=== PATIENT | female | born 1985 | race Caucasian/White ===

== ENCOUNTER → 2017-03-06 | Outpatient (CLI) | payer MEDICARE ==
[~2017-03-06] MED LIST: IBUPROFEN400 MG PO; IBUPROFEN800 MG PO; SUBOXONE 8 MG-1 EACH SL; SUBUTEX 8 MG TAB8 MG PO; SYNTHROID50 MCG PO; TOPICAINE30 GM TD; TYLENOL 500 MG500 MG PO
[2017-03-06 08:58] LABS: HEMOGLOBIN 12.8 gm/dl (12.3-15.3); RED BLOOD COUNT 4.55 M/UL (4.00-5.10); WHITE BLOOD COUNT 6.7 K/UL (4.5-11.0)
[2017-03-06 09:42] LABS: BUN/CREATININE RATIO 11 (0-10)
== END ==
LOC: LAB 06:49
PROVIDERS: Family Medicine
DX: N95.1 Menopausal and female climacteric states (principal)
CPT/HCPCS: 36415; 80048; 82670; 83001; 83002; 84403; 84443; 85027

== ENCOUNTER → 2017-05-14 | Outpatient (CLI) | payer MEDICARE ==
[2017-05-14 10:50] LABS: HEMOGLOBIN 13.1 gm/dl (12.3-15.3); RED BLOOD COUNT 4.61 M/UL (4.00-5.10); WHITE BLOOD COUNT 5.9 K/UL (4.5-11.0)
== END ==
LOC: OPSV2 09:30
PROVIDERS: Obstetrics & Gynecology
DX: Z01.812 Encounter for preprocedural laboratory examination (principal); N90.89 Other specified noninflammatory disorders of vulva and perineum
CPT/HCPCS: 36415; 81001; 85025

== ENCOUNTER → 2017-05-21 | Day surgery (SDC) | payer MEDICARE ==
[~2017-05-21] VITALS: Ht 162.6 cm; Wt 57.6 kg
== END | disposition home or self-care (01) ==
LOC: OR 06:23
PROVIDERS: Obstetrics & Gynecology
PROC: 0UBMXZZ Excision of Vulva, External Approach (ICD-10-PCS; principal; 2017-05-21 08:00)
DX: D07.1 Carcinoma in situ of vulva (principal); E03.9 Hypothyroidism, unspecified; Z80.41 Family history of malignant neoplasm of ovary; Z79.1 Long term (current) use of non-steroidal anti-inflammatories (NSAID); Z79.899 Other long term (current) drug therapy; Z90.710 Acquired absence of both cervix and uterus; Z90.722 Acquired absence of ovaries, bilateral
CPT/HCPCS: 11403; J1885; J2250; J2405; J2795; J7120

== ENCOUNTER 2021-09-17 16:39 | Emergency (ER) | payer OTHER ==
[~2021-09-17 16:39] MED LIST changes: +LACTULOSE10 GM/15 M PO; +MAGNESIUM CITR296 ML PO; +ZOFRAN4 MG PO
== END 2021-09-17 20:35 | disposition home or self-care (01) ==
LOC: ER1 16:39
DX: S09.90XA Unspecified injury of head, initial encounter (principal); M54.2 Cervicalgia; M79.671 Pain in right foot; M79.672 Pain in left foot; M54.50 Low back pain, unspecified; M25.571 Pain in right ankle and joints of right foot; M79.651 Pain in right thigh; F17.200 Nicotine dependence, unspecified, uncomplicated; Y04.8XXA Assault by other bodily force, initial encounter
CPT/HCPCS: 70450; 71045; 72100; 72125; 72220; 73110; 73552; 73610; 73630; 81001; 99284

== ENCOUNTER → 2021-09-27 | Outpatient (CLI) | payer OTHER | LOC: EROP 14:43 | DX: S82.891A Other fracture of right lower leg, initial encounter for closed fracture (principal) | CPT/HCPCS: G0463 ==

== ENCOUNTER 2021-10-30 11:29 | Emergency (ER) | payer OTHER | END 2021-10-30 12:25 | disposition left against medical advice (07) | LOC: ER1 11:29 | DX: Z53.21 Procedure and treatment not carried out due to patient leaving prior to being seen by health care provider (principal) ==

== ENCOUNTER 2021-11-09 17:26 | Emergency (ER) | payer OTHER | END 2021-11-09 18:44 | disposition left against medical advice (07) | LOC: ER1 17:26 | DX: R59.0 Localized enlarged lymph nodes (principal); F17.200 Nicotine dependence, unspecified, uncomplicated | CPT/HCPCS: 99282 ==

== ENCOUNTER 2021-11-10 22:21 | Emergency (ER) | payer OTHER ==
[2021-11-10 23:13] LABS: HEMOGLOBIN 12.3 gm/dl (12.3-15.3); RED BLOOD COUNT 4.44 M/UL (4.00-5.10); WHITE BLOOD COUNT 5.4 K/UL (4.5-11.0)
[2021-11-10 23:29] LABS: BUN/CREATININE RATIO 13 (0-10)
[2021-11-11] MEDS ORDERED: AUGMENTIN 875-1 EACH PO (01:55)
== END 2021-11-11 02:11 | disposition home or self-care (01) ==
LOC: ER1 22:21
PROVIDERS: Nurse Practitioner
DX: S00.01XA Abrasion of scalp, initial encounter (principal); R59.0 Localized enlarged lymph nodes; F17.200 Nicotine dependence, unspecified, uncomplicated; W55.03XA Scratched by cat, initial encounter
CPT/HCPCS: 80048; 85025; 99283

== ENCOUNTER 2022-03-13 04:07 | Emergency (ER) | payer OTHER ==
[~2022-03-13 04:07] MED LIST changes: +AUGMENTIN 875-1 EACH PO
[2022-03-13 04:55] LABS: HEMOGLOBIN 12.9 gm/dl (12.3-15.3); RED BLOOD COUNT 4.7 M/UL (4.00-5.10); WHITE BLOOD COUNT 13.5 K/UL (4.5-11.0)
[2022-03-13 05:15] LABS: BUN/CREATININE RATIO 15 (0-10)
[2022-03-13] MEDS ORDERED: KEFLEX CAP 250250 MG PO (06:26)
== END 2022-03-13 07:21 | disposition home or self-care (01) ==
LOC: ER1 04:07
PROVIDERS: Family Medicine
DX: N12 Tubulo-interstitial nephritis, not specified as acute or chronic (principal); F17.290 Nicotine dependence, other tobacco product, uncomplicated
CPT/HCPCS: 80053; 80307; 81001; 82550; 82553; 83605; 83690; 84484; 85025; 93005; 96365; 96374; 96375; 99284; J0690; J1885; J2405; Q9967